=== PATIENT | female | born 1995 | race Caucasian/White ===

== ENCOUNTER 2023-04-16 15:40 | Outpatient (CLI) | payer BC, SELFPAY ==
--- NOTE | ~2023-04-16 | XR_ITS ---
EXAMINATION: XR chest 2V DATE: 04/16/2023 15:55 INDICATION: Nonspecific lymphadenitis TECHNIQUE: PA and lateral views of the chest are obtained. COMPARISON: None available FINDINGS: The lungs are free of acute opacities. No pleural effusion or pneumothorax. The cardiomedia stinal silhouette is normal. The visualized bones and soft tissues are unremarkable. IMPRESSION: 1. No acute cardiopulmonary abnormality. Reviewed, dictated and finalized at location F.
== END 2023-04-16 15:41 | disposition home or self-care (01) ==
PROVIDERS: PCP Family Medicine; Visit Provider Physician Assistant
DX: I88.9 Nonspecific lymphadenitis, unspecified (principal)
CPT/HCPCS: 71046

== ENCOUNTER → 2023-05-25 13:13 | Outpatient (CLI) | payer BC, SELFPAY ==
--- NOTE | ~2023-05-25 | US_ITS ---
US axilla 05/25/2023 13:50 Indication: Enlarged axillary lymph nodes versus lipoma Procedure: High-resolution ultrasound of the axilla bilaterally Comparison: No prior studies for comparison. Findings: There are normal-appearing bilateral axillary lymph nodes which retain their fatty hilum. L argest on the right measures 12 mm and on the left measures 11 mm. No pathologic appearing lymph node s or lipomas are identified. Impression: 1: Bilateral axillary lymph nodes, likely reactive. Reviewed, dictated and finalized at location A. Impression: 1: Bilateral axillary lymph nodes, likely reactive.
--- NOTE | ~2023-05-25 | US_ITS ---
EXAMINATION: US thyroid DATE: 05/25/2023 13:50 INDICATION: Weight gain. Fatigue. TECHNIQUE: Multiple ultrasound images of the thyroid were obtained. COMPARISON: None. FINDINGS: The right thyroid lobe measures 6.1 x 1.1 x 1.1 cm. The left thyroid lobe measures 5.8 x 0.9 x 1.6 c m. In the right thyroid lobe, there is a 2 mm nodule, likely not clinically significant. In the left thyroid lobe, there is a 2.5 cm solid, hypoechoic, wider than tall nodule with lobulated margin and punctate echogenic foci (TI-RADS TR5). IMPRESSION: 1. Thyroid nodules. Ultrasound-guided fine-needle aspiration of the left thyroid nodule is recommende d. Reviewed, dictated and finalized at location A. IMPRESSION: 1. Thyroid nodules. Ultrasound-guided fine-needle aspiration of the left thyroi d nodule is recommended.
== END ==
PROVIDERS: PCP Family Medicine; Visit Provider Physician Assistant
DX: R53.83 Other fatigue (principal); E04.2 Nontoxic multinodular goiter
CPT/HCPCS: 76536; 76882

== ENCOUNTER 2023-06-11 09:01 | Outpatient (CLI) | payer BC, SELFPAY ==
--- NOTE | ~2023-06-11 | US_ITS ---
EXAMINATION: US FNA w image guidance DATE: 06/11/2023 10:02 INDICATION: Nontoxic single thyroid nodule TECHNIQUE: A time-out was performed to verify the patient's name, date of , and procedure to be performed . The procedure and its benefits and risks were discussed with the patient. Risks specifically discus sed included bleeding and infection. The patient understood the risks and agreed to proceed. The neck was prepped and draped in the usual sterile manner. 3 mL 1% lidocaine was used for local anesthesia . 6 passes were made with a 25G needle into the lesion. Appropriate needle location was documented with continuous sonographic guidance. A sterile bandage was applied. There were no immediate compli cations. FINDINGS: Grayscale ultrasound images demonstrate biopsy needles advanced into a 2.5 cm solid very hypoechoic T I RADS 5 nodule with punctate echogenic foci in the left thyroid. IMPRESSION: 1. Successful ultrasound-guided fine needle aspiration of the 2.5 cm TI RADS 5 left thyroid nodule o f concern. Reviewed, dictated and finalized at location A. IMPRESSION: 1. Successful ultrasound-guided fine needle aspiration of the 2.5 cm TI RADS 5 left thyroid nodule of concern.
== END 2023-06-11 09:02 | disposition home or self-care (01) ==
PROVIDERS: PCP Family Medicine; Visit Provider Physician Assistant
DX: E04.1 Nontoxic single thyroid nodule (principal)
CPT/HCPCS: 10005; 88173; 88305

== ENCOUNTER 2024-02-04 11:02 | Outpatient (CLI) | payer BC, SELFPAY ==
--- NOTE | ~2024-02-04 | US_ITS ---
EXAMINATION: US thyroid DATE: 02/04/2024 12:32 INDICATION: Thyroid nodule. TECHNIQUE: Multiple ultrasound images of the thyroid were obtained. COMPARISON: Ultrasound 05/25/2023, 06/11/23 FINDINGS: The right thyroid lobe measures 5.6 x 1.0 x 1.4 cm. The left thyroid lobe measures 5.8 x 1.2 x 1.4 c m. In the left thyroid lobe, there is a 2.9 cm solid, hypoechoic, wider than tall nodule with lobula abby margin and punctate echogenic foci (TI-RADS TR5). IMPRESSION: 1. Left thyroid nodule, stable from 06/11/2023 when biopsy was benign. Reviewed, dictated and finalized at location A.
== END 2024-02-04 11:03 | disposition home or self-care (01) ==
LOC: ANHIMG 11:03
PROVIDERS: PCP Family Medicine; Visit Provider Otolaryngology
DX: E04.1 Nontoxic single thyroid nodule (principal)
CPT/HCPCS: 76536

== ENCOUNTER 2025-03-26 17:26 | Outpatient (CLI) | payer BC, SELFPAY ==
--- NOTE | ~2025-03-26 | XR_ITS ---
EXAM: XR_KNEE1-2VRT_CR, XR_KNEE1-2VLT_CR DATE: 03/26/2025 17:46 HISTORY: M25.561 - Pain in right knee . COMPARISON: None available. FINDINGS: Normal mineralization. No fracture or dislocation. No lytic or blastic lesion. Mild medial joint space narrowing bilaterally, slightly more pronounced in the right knee. Trace bilateral joint effusions. No erosion or periosteal change. Soft tissues within normal limits. IMPRESSION: Mild bilateral interstitial compartment osteoarthritis. Reviewed, dictated and finalized at location K. IMPRESSION: Mild bilateral interstitial compartment osteoarthritis.
--- OUTSIDE RECORDS SUMMARY | 2025-03-26 17:30 | XMS_ITS | Continuity of Care Document ---
Author Organization [facility] Address [address] [place] [address] Phone Care Team Providers Care Pharmacy General Manager Name Role Phone Isai MSN CAR RETARDER OPERATOR-C, Sloane Unavailable Unavai lable Advance Directives Directive Yes / No Effective Date File Name No Information Encounters Encounter Description Practice Location Reason(s) For Visit Diagnoses Date Provider Providers [facility]ied [facility], [address] [place] [address], [id number], [place] tel: [phone] [facility] No Information Isai Anton. [address] [place], [address], [place]. tel: [phone] Family History Family Member Type Diagnosis Age At Onset No Information Payers Payer name Insurance type Covered alliance party ID Authoriza tion(s) No Information Social History Type Description Quantity Date Captured Comments Sex Female Smoking Status No Information Chief Complaint And Reason For Visit No Information Reason For Referral Reason For Referral No Information History Of Present Illness Encounter Date Complaint History Of Prese nt Illness No Information Functional Status Date Functional Assessmen t No Information Instructions Date Instruction Additional Infor mation No Information Assessments Type Assessment Date No Information Patient Care Teams Name Effective Dates (start - stop) Status Members No Information
--- OUTSIDE RECORDS SUMMARY | 2025-03-26 17:30 | XMS_ITS | Continuity of Care Document ---
Author Organization [facility] Address [address] [place] [address] Phone Care Team Providers Care Anodic Treater Name Role Phone Joseluis Kaur MD Unavailable Unavailable Advance Directives Directive Yes / No Effective Date File Name No Information Encounters Encounter Description Practice Location Reason(s) For Visit Diagnoses Date Provider Providers Copied on Encounter [facility], [address], [id number], tel:[phone] [facility] No Information Vincent Huggins. [address] [place], [id number], [place]. tel:[phone] [facility], [address], [id number], [place] tel:[phone] [facility] Encounter for general adult medical examination without abnormal findings Vincent Huggins. [address], [place], [id number], [place]. tel:[phone] Family History Family Member Type Diagnosis Age At Onset No Information Payers Payer name Insurance type Covered alliance party ID Authoriza tion(s) No Information Social History Type Description Quantity Date Captured Comments Sex Female Smoking Status No Information Chief Complaint And Reason For Visit No Information Plan Of Treatment Date Type Action Status No Information History Of Present Illness Encounter Date Complaint History Of Prese nt Illness No Information Instructions Date Instruction Additional Infor mation No Information Assessments Type Assessment Date No Information
--- OUTSIDE RECORDS SUMMARY | 2025-03-26 17:30 | XMS_ITS | Continuity of Care Document ---
Author Organization [facility] Address [address] [facility] [address] [place] [address] Phone Care Team Providers Care Computational Geneticist Name Role Phone Salome DELGADO, Samra Unavailable Unavailable Medications Medication Instructions Dosage Effective Dates (start - stop) Status Comments Aerochamber Plus Flow-Vu use with MDI as instructed - Active albuterol sulfate HFA 90 mcg/actuation aerosol inhaler inhale 2 puff by Inhalation route every 4 - 6 hours as needed for cough, wheeze, shortness of breath 2 puff - Active Flovent HFA 44 mcg/actuation aerosol inhaler inhale 2 puff by inhalation route 2 times every day - Active Flonase Allergy Relief 50 mcg/actuation nasal spray,suspension spray 2 spray by intranasal route every day in each nostril 100-100 MCG - Active Procedures Procedure Date Less Than 24 Hour Notice Of Appointment Cancellation Less Than 24 Hour Notice Of Appointment Cancellation Flow Volume Loop EVALUATE PT USE OF INHALER Mouth piece Perc Test Intradermal Test New (Level 4) OFFICE/OUTPATIENT VISIT SOFTWARE MANAGER Registration Fee Advance Directives Directive Yes / No Effective Date File Name No Information Encounters Encounter Description Practice Location Reason(s) For Visit Diagnoses Date Provider Providers Copied on Encounter [facility], [address] [place] [address], [id number], tel:[phone] [facility] No Information 4 Salome Cheshil. [address], [place], [address], [place]. tel:[phone] [facility], [address] [place] [address], [id number], [place] tel:[phone] [place] Information [facility] . Referring Provider: Samra Mcmahon, [address], [place], [address]. tel:[phone] [facility], [address] [place] [address], [id number], tel:[phone] [facility] Information 3 Salome Cheshil. [address], [place], [address], [place]. tel:[phone] [facility], [address] [place] [address], [id number], tel:[phone] [facility] No Information 3 Meenakshi Kline. [address] [place] [address], [address], [place], [place], [id number], [place]. tel:[phone] New (Level 4) OFFICE/OUTPA TIENT VISIT [facility], [address] [place] [address], [id number], [place] tel:[phone] [facility] symptoms (chief complaint) Other allergic rhinitisWheezing Body mass index (BMI) 28.0-28.9, adult Aug- 3 Salome Cheshil. [address], [place], [address], [place]. tel:[phone] Referring Provider: Cara cole, [address] [place] [address] [address], [place], [address]. tel:[phone] [facility], [address] [address], [place], [place], [id number], [place] tel:[phone] [facility] [place] Information 3 Salomeroge Suil. [address] [facility], [place], [address], [place]. tel:[phone] Family History Family Member Type Diagnosis Age At Onset Father Problem Thyroid disorder Problem No family histor y of Family history of rheumatoid arthritis Problem No family history of Asthma Father Problem Allergic rhinitis Problem No family history of Immunod eficiency disorder Payers Payer name Insurance type Covered democrat ID Authordiannakelsey hayleymelba(s) [facility] [id number] Social History Type Description Quantity Date Captured Comments Alcohol Use Details Unknown Caffeine Use Details Unknown Tobacco Use Status No Information Smoking Status No Information Sex Female Chief Complaint And Reason For Visit No Information Reason For Referral Reason For Referral No Information History Of Present Illness Encounter Date Complaint History Of Prese nt Illness allergy symptoms WheezingShe rep orts wheezing and shortness of breath over the last 7 months. This occurs at rest and with activity. She does awaken with coughing in the middle of the night. She does not carry any inhalers. RhinitisThe patient has a history of perennial rhinitis with seasonal worsening in spring/summer. Her symptoms have worsened over the last 6-8 months. The symptoms include nasal pruritus, congestion, rhinorrhea (ant), sneezing, and cough w/ ocular pruritus and tearing. Currently, the patient is on Flonase 2 SEN daily x 3 months + allergy eye drops, which did not provide adequate relief. The patient does not have a history of frequent sinus infections.She reports loss of sense of smell and taste over the last 6-8 months.She notes that her symptoms of wheezing and rhinitis seem to be worse in areas where there is mold in her apartment (see below).She did cut gluten, dairy, and soy at a recommendation from her It Trainer. The patient feels better doing this. 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 Also, take 2 puffs 15-20 minutes prior to exertion Related to Wheezing - use afrin 2 sprays each nostril twice daily prior to other treatments - do NOT use more than 3 days in a row- use nasal saline rinses twice daily- use Flonase 2 sprays each nostril daily- Please remember to point the nasal spray away from the nasal septum, up and outwards towards the top of the ears on both sides- if nose bleeding occurs, please hold the nasal spray for 2-3 days to allow for healing of the nasal tissue (you may use nasal saline gel or vaseline on a q-tip to help heal the tissue), then restart the nasal spray.- If nose bleeding recurs, please stop the nasal spray and contact our office to set up an appointment for further guidance Related to Other allergic rhinitis Giving encouragement to exercise Related to Body mass index [BMI] 28.0-28.9, adult Assessments Type Assessment Date No Information Patient Care Teams Name Effective Dates (start - stop) Status Members No Information
--- OUTSIDE RECORDS SUMMARY | 2025-03-26 17:31 | XMS_ITS | Encounter Summary ---
Author Organization [facility] Address [address] [place] [address] Care Team Providers Care Cvt Rn Name Role Phone Cara Pratt MD Primary Care Provider [phone] Encounter Details Date Type Department Care Team (Late st Contact Info) Description 02/22/2025 Results Follow-Up [facility] [facility] - 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
--- OUTSIDE RECORDS SUMMARY | 2025-03-26 17:31 | XMS_ITS | Clinical Summary ---
Author Organization [facility] Address [address] [place] [phone] Phone Care Team Providers Care Manager Clinical Services Name Role Phone Cara Pratt MD Primary Care Provider [phone]- [phone] Allergies No known active allergies Medications Tri-Sprintec, 28, 0.18/0.215/0.25 mg-35 mcg (28) tablet Take 1 Tablet by mouth daily. 10/10/2024 Active dextroamphetamin e-amphetamine (ADDERALL) 15 mg tablet Take 15 mg by mouth daily. Active Active Problems Problem Noted Date Diagnosed Date Gastroesophageal reflux disease without esophagi tis 08/14/2021 Depression affecting pregnan cy in third trimester, antepartum 08/14/2021 PLTCS; PPH (2460); anemia; girl 07/01/2021 Amniotic fluid leaking 06/29/2021 Clear vaginal discharge 05/20/2021 Tenderness of right calf 05/13/2021 Rubella non-immune status, antepartum 12/16/2020 Change in bowel habit 10/14/2020 Bloating 10/14/2020 Hematochezia 10/14/2020 Constipation 10/14/2020 Cramping affecting , antepartum Decreased movements in second trimester Encounters Date Type Department Care Team Description 02/22/2025 Results Follow-Up [facility] - [address] [place] [phone] Antonia Samuel NP ESTRADIOL 02/13/2025 External Device Data STL ABSTRACTION Provider, Abstract 01/13/2025 External Device Data STL ABSTRACTION Provider, Abstract 01/12/2025 External Device Data STL ABSTRACTION Provider, Abstract 01/10/2025 External Device Data STL ABSTRACTION Provider, Abstract 12/27/2024 External Device Data STL ABSTRACTION Provider, Abstract from Last 3 Months Immunizations Immunization Administration Dates Next Due (ADACEL/BOOSTRIX)(10 YR UP) TDAP VACCINE, 0.5ML, IM 04/18/2021 (M-M-R II/PRIORIX)(12 MO UP) MEASLES, MUMPS AND RUBELLA VIRUS VACCINE, 0.5 ML IM/SUBCUT 07/04/2021 (PFIZER)(12 YR UP) COVID-19 VACCINE - EMERGENCY USE AUTHORIZATION, MRNA, [id number](PF) 30 MCG/0.3 ML IM SUSP 04/12/2021,04/01/2021 Influenza Seasonal Unspecifi ed Formulation IM 09/07/2021,09/25/2020,08/05/2020,2019 Family History Medical History Relation Name Comments Depression Father James Gaines Diabetes Father James Gaines Other Father James Gaines Hosimotos Thyroid Disease Father James Gaines Preeclampsia Mother Bethany Gaines Colon Cancer Paternal Grandmother Dada Gaines Relation Name Status Comments Father James Gaines Alive Mother Bethany Gaines Alive Paternal Grandmother Dada Gaines Social History Tobacco Use Types Packs/Day Years Used Date Smoking Tobacco: Never Smokeless Tobacco: Never Alcohol Use Standard Drinks/Week Comments Not Currently 0 (1 standard drink = 0.6 oz pur e alcohol) Comments No Sex and Gender Information Value Date Recorded Sex Assigned at Not on file Legal Sex Female 9:19 PM GLASS BENDER Gender Identity Not on file Sexual Orientation Not on file Last Filed Vital Signs Vital Sign Reading Time Taken Comments Blood Pressure 123/74 12/18/2024 9:32 AM GLASS BENDER Pulse 81 12/18/2024 9:32 AM GLASS BENDER Temperature 36.5 C (97.7 F) 12/18/2024 9:32 AM GLASS BENDER Respiratory Rate 14 06/03/2022 10:17 AM CDT Oxygen Saturation 100% 06/03/2022 10:17 AM CDT Inhaled Oxygen Concentration - - Weight 82.1 kg (181 lb) 04/17/2024 9:21 AM CDT Height 172.7 cm (5' 8 ) 04/17/2024 9:21 AM CDT Body Mass Index 27.52 04/17/2024 9:21 AM CDT Plan of Treatment Health Maintenance Due Date Last Done Comments HEPATITIS B VACCINES (1 of 3 - 19+ 3-dose series) 2014 HPV/Cotest (21-29) 01/10/2016 COVID-19 Vaccine ( - 2023- season) 2024 09/18/2021, 04/12/2021, 04/01/2021 CERVICAL CANCER SCREENING 2025 HPV/Cotest (30-65) 2025 PAP SMEAR 2025 12/03/2021 DTAP/TDAP/TD VACCINES (2 - Td or Tdap) 04/18/2031 04/18/2021 INFLUENZA VACCINE Completed 09/07/2024, , 09/07/2021, Additional history exists HPV VACCINES Aged Out No longer eligi ble based on patient's age to complete this topic Medical Devices Implanted Type Area Circus Performer Device Identifier Shelf Expiration Date Model / Serial / Lot Hemostatic Surg Powder [id number] - [id number] Implanted:Qty : 1 on 06/30/2021 by Michelle Awan MD at [facility] Hemostatic N/A: Abdomen [employer] [id number] / / Procedures Procedure Name Priority Date/Time Associated Diagnosis Comments LUTEINIZING HORMONE Routine 02/21/2025 1 :14 PM CDT Irregular bleeding FSH Routine 02/21/2025 1:14 PM CDT Irregular bleeding ESTRADIOL Routine 02/21/2025 1:14 PM CDT Irregular bleeding CERV/VAG CYTO AGE BASED SCREEN PAP Routine 12/03/2021 2:29 PM GLASS BENDER Well woman exam with routine gynecological exam from Last 3 Months or Most Recently Relevant to Health Maintenance Results * ESTRADIOL (02/21/2025 1:14 PM CDT) [facility]OL 46 pg/[facility] Comment: Reference Range Follicular Phase: 19-144 Mid-Cycle: 64-357 Luteal Phase: 56-214 Postmenopausal: < or = 31 Reference range established on post-pubertal patient population. No pre-pubertal reference range established using this assay. For any patients for whom low Estradiol levels are anticipated (e.g. males, pre-pubertal children and hypogonadal/post-menopausal females), the [facility] Estradiol, Ultrasensitive, LCMSMS assay is recommended (order code 58729). Please note: patients being treated with the drug fulvestrant (Faslodex(R)) have demonstrated significant interference in immunoassay methods for estradiol measurement. The cross reactivity could lead to falsely elevated estradiol test results leading to an inappropriate clinical assessment of estrogen status. AYLIEN order code [id number], Ultrasensitive LC/MS/MS demonstrates negligible cross reactivity with fulvestrant. INSURANCE ON PHONE FASTING:NO FASTING: NO Test Performed at: [facility] [place] [address] [place] [address] Zenia Nazario Blood 02/21/2025 1:14 PM CDT 02/21/2025 1:15 PM CDT Antonia Samuel BOTTLE PACKING MACHINE CLEANER CHEMISTRY ORDERABLES Final Resu lt [facility] [phone] [place] [address] [place] [address] * LUTEINIZING HORMONE (02/21/2025 1:14 PM CDT) LUTEINIZING HORMONE 5.0 mIU/mL [facility] Comment: Reference Range Follicular Phase 1.9-12.5 Mid-Cycle Peak 8.7-76.3 Luteal Phase 0.5-16.9 Postmenopausal 10.0-54.7 INSURANCE ON PHONE FASTING:NO FASTING: NO Test Performed at: [facility] [address] [address] Zenia Nazario MD Blood 02/21/2025 1:14 PM CDT 02/21/2025 1:15 PM CDT us Antonia Samuel BOTTLE PACKING MACHINE CLEANER CHEMISTRY ORDERABLES Final Resu lt Performing Organization Address [facility]/ZIP Co de Phone Number [facility] [phone] [facility] [address] [place] [address] * FSH (02/21/2025 1:14 PM CDT) FSH 7.5 mIU/mL [facility] Comment: Reference Range Follicular Phase 2.5-10.2 Mid-cycle Peak 3.1-17.7 Luteal Phase 1.5- 9.1 Postmenopausal 23.0-116.3 Test Performed at: [facility] [address] [place] [address] Zenia Nazario MD Blood 02/21/2025 1:14 PM CDT 02/21/2025 1:15 PM CDT Antonia Samuel NP CHEMISTRY ORDERABLES Final Resu Performing Organization Address [facility] Co de Phone Number [facility] [phone] [facility] [address] [place] [address] * CERV/VAG CYTO AGE BASED SCREEN PAP (12/03/2021 2:29 PM GLASS BENDER) COMMENT (PAP): [facility] Comment: This order for age-based cervical cancer and STI screening follows ACOG guidelines(PB 168, 140, HBY080). See individual assays for performing site location. CLINICAL INFORMATION [facility] Comment:Information not prov ided LAST MENSTRUAL PERIOD [facility] Comment:INFORMATION NOT PROV IDED PREV PAP: [facility] Comment:INFORMATION NOT PROV IDED PREV BX: [facility] Comment:INFORMATION NOT PROV IDED SOURCE [facility] Comment:Endocervix ADEQUACY: [facility] Comment: Satisfactory for evaluation. Endocervical/transformation zone component absent. Age and/or menstrual status not provided PAP INTERP [facility] Comment:Negative for intraep ithelial lesion or malignancy. COMMENT (PAP TEST) [facility] Comment: This Pap test has been evaluated with computer assisted technology. KELLY MACHINE OPERATOR: [facility] Comment: BES, CT(ASCP) CT screening location: [place] [address] [address] [place] [address] EXPLANATORY NOTE [facility] Comment: EXPLANATORY NOTE: The Pap is a screening test for cervical cancer. It is not a diagnostic test and is subject to false negative and false positive results. It is most reliable when a satisfactory sample, regularly obtained, is submitted with relevant clinical findings and history, and when the Pap result is evaluated along with historic and current clinical information. Test Performed at: [place] [address] [place] [address] Antoinette-Dirku Thi Vo Genital SWAB OF ENDOCERVIX / Unknown 12/03/2021 2:29 PM GLASS BENDER 12/03/2021 7:51 PM GLASS BENDER Michelle Awan MD PATHOLOGY/CYTOLOGY EULALIO GIFFORD Final Result [facility] [address] [place] [address] from Last 3 Months or Most Recently Relevant to Health Maintenance Insurance [facility] BLUE ACCESS CHOICE RX [employer] RX Member Subscriber Plan / Payer (Ef fective 2021-Present) Name:Gina Gonzalez Relation to Subscriber:Self Name:Gina Gonzalez Subscriber ID:Not on file Payer ID:Not on file Group ID:[id number] Type:RX Commercial Address: [place] RX BLANK PLANS (INTERNAL) [facility] Internal Plans Advance Directives For more information, please contact: [phone] * Full Code (Latest Code Status on File) Date Activated Date Inactivated Comments 06/03/2022 8:57 AM 06/03/2022 12:52 PM * Full Code Date Activated Date Inactivated Comments 06/18/2021 9:39 AM 06/18/2021 3:36 PM * Full Code Date Activated Date Inactivated Comments 05/20/2021 9:36 PM 05/21/2021 1:57 AM * Full Code Date Activated Date Inactivated Comments 05/13/2021 12:33 PM 05/13/2021 4:16 PM * Full Code Date Activated Date Inactivated Comments 02/11/2021 2:58 PM 02/11/2021 6:35 PM Care Teams Manager Clinical Services Relationship Specialty Start Date End Date Cara Pratt MD PCP - General Family Practice 04/20/22
== END 2025-03-26 17:27 | disposition home or self-care (01) ==
PROVIDERS: PCP Family Medicine; Visit Provider Student in an Organized Health Care Education/Training Program
DX: M17.0 Bilateral primary osteoarthritis of knee (principal)
CPT/HCPCS: 73560

== ENCOUNTER 2025-06-27 15:32 | Outpatient (CLI) | payer BC, SELFPAY ==
--- NOTE | ~2025-06-27 | US_ITS ---
US thyroid INDICATION: Nontoxic thyroid nodule TECHNIQUE: Real-time sonographic images of the thyroid gland were obtained. COMPARISON: Comparison to multiple prior studies sequentially, with oldest reviewed study dated 05/25/2023. FINDINGS: The right thyroid lobe measures 5.6 x 1.2 x 1.5 cm. The left thyroid lobe measures 5.8 x 1.5 x 1.8 cm. There is normal echotexture and echogenicity throughout the thyroid gland. There is an oval solid hypoechoic mass which is wider than tall, circumscribed margins and internal punctate echogenic foci, TR 5, measuring 2.6 x 1.5 x 1.2 cm, unchanged from prior study. Normal vascular flow is present. IMPRESSION: 1. Stable left thyroid mass since 06/11/2023 when it was previously biopsy-proven benign. Reviewed, dictated and finalized at location A. IMPRESSION: 1. Stable left thyroid mass since 06/11/2023 when it was previously biopsy-prove n benign.
--- OUTSIDE RECORDS SUMMARY | 2025-06-27 15:57 | XMS_ITS | Clinical Summary ---
Author Organization [facility] Address [address] [place] [phone] Phone Care Team Providers Care Development Representative Name Role Phone Cara Pratt MD Primary Care Provider [phone]- [phone] Allergies No known active allergies Medications Tri-Sprintec, [...] Encounters Date Type Department Care Team Description 06/13/2025 External Device Data STL ABSTRACTION Provider, Abstract 05/08/2025 External Device Data STL ABSTRACTION Provider, Abstract 03/29/2025 External Device Data STL ABSTRACTION Provider, Abstract from Last 3 Months Immunizations Immunization Administration Dates Next Due (ADACEL/BOOSTRIX)(10 YR UP) TDAP VACCINE, 0.5ML, IM 04/18/2021 (M-M-R II/PRIORIX)(12 MO UP) MEASLES, MUMPS AND RUBELLA VIRUS VACCINE, 0.5 ML IM/SUBCUT 07/04/2021 (PFIZER)(12 YR UP) COVID-19 VACCINE - EMERGENCY USE AUTHORIZATION, MRNA, [id number](PF) 30 MCG/0.3 ML IM SUSP 04/12/2021,04/01/2021 Influenza [...] on file Legal Sex Female 9:19 PM OUTBOARD MOTOR MECHANIC Gender Identity Not on file Sexual Orientation Not on file Last Filed Vital Signs Vital Sign Reading Time Taken Comments Blood Pressure 123/74 12/18/2024 9:32 AM OUTBOARD MOTOR MECHANIC Pulse 81 12/18/2024 9:32 AM OUTBOARD MOTOR MECHANIC Temperature 36.5 C (97.7 F) 12/18/2024 9:32 AM OUTBOARD MOTOR MECHANIC Respiratory Rate 14 06/03/2022 10:17 AM CDT Oxygen Saturation 100% 06/03/2022 10:17 AM CDT Inhaled Oxygen Concentration - - Weight 82.1 kg (181 lb) 04/17/2024 9:21 AM CDT Height 172.7 cm (5' 8) 04/17/2024 9:21 AM CDT Body Mass Index 27.52 04/17/2024 9:21 AM CDT Plan of Treatment Health Maintenance Due Date Last Done Comments HPV VACCINES (1 - 3-dose series) 2010 HEPATITIS B VACCINES (1 of 3 - 19+ 3-dose series) 2014 HPV/Cotest (21-29) 01/10/2016 COVID-19 Vaccine (2023-2 5 season) 2024 09/18/2021, 04/12/2021, 04/01/2021 CERVICAL CANCER SCREENING 2025 HPV/Cotest (30-65) 2025 PAP SMEAR 2025 12/03/2021 INFLUENZA VACCINE (#1) 2025 , 09/17/2022, 09/07/2021, Additional history exists DTAP/TDAP/TD VACCINES (2 - T d or Tdap) 04/18/2031 04/18/2021 Medical Devices Implanted Type Area Featheredge Machine Operator Device Identifier Shelf Expiration Date Model / Serial / Lot Hemostatic Surg Powder [id number] - [id number] Implanted:Qty : 1 on 06/30/2021 by Michelle Awan MD at [facility] Hemostatic N/A: Abdomen J[employer]- [employer] [id number] / / Procedures Procedure Name Priority Date/Time Associated Diagnosis Comments CERV/VAG CYTO AGE BASED SCREEN PAP Routine 12/03/2021 2:29 PM OUTBOARD MOTOR MECHANIC Well woman exam with routine gynecological exam from Last 3 Months or Most Recently Relevant to Health Maintenance Results * CERV/VAG CYTO AGE BASED SCREEN PAP (12/03/2021 2:29 PM OUTBOARD MOTOR MECHANIC) COMMENT (PAP): [facility] Comment: This order for age-based cervical cancer and STI screening follows ACOG guidelines(PB 168, 140, SJG712). See individual assays for performing site location. [...] has been evaluated with computer assisted technology. PLATING AND POINT ASSEMBLY SUPERVISOR: [facility] Comment: BES, CT(ASCP) CT screening location: [place] [address] [place] [address] EXPLANATORY NOTE [facility] Comment: EXPLANATORY NOTE: The Pap is a screening test for cervical cancer. It is not a diagnostic test and is subject to false negative and false positive results. It is most reliable when a satisfactory sample, regularly obtained, is submitted with relevant clinical findings and history, and when the Pap result is evaluated along with historic and current clinical information. Test Performed at: [place] [address] [place] [address] Antoinette-Dirku Thi Vo Genital SWAB OF ENDOCERVIX / Unknown 12/03/2021 2:29 PM OUTBOARD MOTOR MECHANIC 12/03/2021 7:51 PM OUTBOARD MOTOR MECHANIC Michelle Awan MD PATHOLOGY/CYTOLOGY EULALIO GIFFORD Final Result [facility] [address] [place] [address] from Last 3 Months or Most Recently Relevant to Health Maintenance Insurance [facility] BLUE ACCESS CHOICE RX [employer] RX Member Subscriber Plan / Payer (Ef fective 2021-Present) Name:Gina Gonzalez Relation to Subscriber:Self Name:Gina Gonzalez Subscriber ID:Not on file Payer ID:Not on file Group ID:[id number] Type:RX Commercial [facility] [place] [facility] BLANK PL[facility] (INTERNAL) [facility] Internal Plans Advance Directives For more information, please contact: [phone] * Full Code (Latest Code Status on [...] 2:58 PM 02/11/2021 6:35 PM Care Teams Development Representative Relationship Specialty Start Date End Date Cara Pratt MD PCP - General Family Practice 04/20/22
--- OUTSIDE RECORDS SUMMARY | 2025-06-27 15:57 | XMS_ITS | Patient Health Record ---
Author Organization [facility] Address [address] [facility] [address] [place] [address] Care Team Providers Care Core Maker Name Role Phone Kamaljit Batista Unavailable [phone] Reason For Referral No Information Medications Medication SIG (Take, Route, Frequency, Duration) Notes Start Date End Date Status Retin-A Micro Pump 0.08 % Gel External Active Plan Of Treatment No Information Insurance Providers Payer Name Payer Address Payer Phone Subscriber Number Group Number Insured Name Patient Relationship to Insured Coverage Start Date Coverage End Date [facility] [address] [place] [address] [id number] RENEE GONZALEZ Self - patient is the insured
== END 2025-06-27 15:33 | disposition home or self-care (01) ==
PROVIDERS: PCP Family Medicine; Visit Provider Student in an Organized Health Care Education/Training Program
DX: E04.1 Nontoxic single thyroid nodule (principal)
CPT/HCPCS: 76536

== ENCOUNTER 2025-10-05 23:54 | Emergency (ER) | payer BC, SELFPAY ==
--- NOTE | ~2025-10-05 | XR_ITS ---
Examination: XR chest 2V Clinical History: sob Comparison: None Technique: PA and Lateral Findings: Cardiomediastinal silhouette normal size and configuration. Lungs clear. No acute bony abnormality. IMPRESSION: 1. No acute cardiopulmonary findings. Reviewed, dictated and finalized at location R. NATOR ASSEMBLER
--- NOTE | ~2025-10-05 | CT_ITS ---
CTA CHEST CLINICAL HISTORY: cp, sob, elevated dimer, covid + . COMPARISON: Chest x-ray today TECHNIQUE: Helical CTA performed from thoracic inlet to upper abdomen 100 mL Omnipaque 350 Coronal, sagittal reformats. Multiplanar MIPS CT images acquired with automatic exposure control for dose reduction DLP: 215 mGy-cm FINDINGS: Pulmonary arteries: No PE. Thoracic Aorta: No dissection or aneurysm. Heart/pericardium: Unremarkable. RV/LV ratio: Normal. Lungs/Pleura: Clear. Tracheobronchial tree: Patent. Nodes: No enlarged nodes. Bones: No acute bony abnormality. Soft tissues: Unremarkable. Visualized upper abdomen: Hepatomegaly, with steatosis. IMPRESSION: 1. No PE or other acute cardiopulmonary findings. Reviewed, dictated and finalized at location R. GER STATISTICAL
--- NOTE | 2025-10-06 00:28 | ECG_ITS ---
Test Date: 2025-10-06 00:33:51 Measurements Intervals [place] Rate: 78 P: 50 CO: 166 QRS: 97 QRSD: 85 T: 56 QT: 354 QTc: 405 Interpretive Statements SINUS RHYTHM BORDERLINE RIGHT AXIS DEVIATION [QRS AXIS > 90] WITHIN NORMAL LIMITS No previous ECG available for comparison Electronically Signed On 10-06-2025 08:11:52 BOAT CLEANING SUPERVISOR by Ciro Smalls M.D.
--- NOTE | 2025-10-06 00:28 | ED_ITS ---
HPI - SOB/Dyspnea General Chief Complaint: Shortness of Breath/Dyspnea <Erica Cano PA-C - Last Filed: 10/07/25 20:57> Stated Complaint: sob <AYDEN England Last Filed: 10/07/25 20:57> Time Seen by Provider: 10/05/25 23:58 <AYDEN England Last Filed: 10/07/25 20:57> Source: patient <AYDEN England Last Filed: 10/07/25 20:57> Mode of arrival: ambulatory <AYDEN England Last Filed: 10/07/25 20:57> Limitations: no limitations <AYDEN England Last Filed: 10/07/25 20:57> History of Present Illness HPI Narrative: This is a 30 year old female that presents to the ER for shortness of breath. Reports she has had a cold this week. Reports fever, cough, congestion. Reports similar illness in her child. Reports she has had worsening shortness of breath while lying down which concerned her and prompted her to be seen. <Erica Cano PA-C - Last Filed: 10/07/25 20:57> Related Data Allergies/Adverse Reactions: Allergies Allergy/AdvReac Type Severity Reaction Status Date / Time dexamethasone AdvReac Intermediate hot flashes Verified 06/20/25 15:34 <Erica Cano PA-C - Last Filed: 10/07/25 20:57> Review of Systems 2 Review of Systems: All systems reviewed & are unremarkable except as noted in HPI and below <Erica Cano PA-C - Last Filed: 10/07/25 20:57> [facility] Past Medical History Medical History: Medical History Cough Mass of both axillae Nipple discharge Breast pain Lymphadenitis anemia Establishing care with new doctor, encounter for HIEU (generalized anxiety disorder) hemorrhage Transfusion history Anemia Migraine Anxiety <AYDEN England Last Filed: 10/07/25 20:57> Surgical History Surgical History: Surgical History Hx of section <Erica Cano PA-C - Last Filed: 10/07/25 20:57> Family History Family History: Family History Grandparent Carcinoma of colon <Erica Cano PA-C - Last Filed: 10/07/25 20:57> Social History Social History: Social History Social History: Smoking status: Never smoker Second hand tobacco smoke exposure: No Alcohol intake: never Substance use: never Substance use type: does not use Lack of Transportation: No Lack of Food: Never True Current Housing: I Have Housing Concerned About Future Housing: No Difficulty Paying Gas/Electric Bills: No Difficulty Paying for Meds: No Currently Unemployed: No Education: Master's Degree or Higher Difficulty w/ Childcare or Family Care: No Living arrangements: with family Occupation/Education: occupation 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 HEAD: Normocephalic, atraumatic. EYES: EOMI. ENT: Nares clear, no rhinorrhea or epistaxis. Mucous membranes moist. Oropharynx without tonsillar hypertrophy exudate or other lesions. Bilateral TMs pearly rowell non-bulging NECK: Supple. No adenopathy or masses. CHEST: Clear to auscultation. No respiratory distress. No wheezes rales or rhonchi HEART: Regular rate and rhythm. No murmur heard. Normal peripheral pulses. EXTREMITIES: Normal range of motion. No edema. SKIN: Warm, dry, no rash. NEURO: No focal deficits. Alert and oriented x3. PSYCH: Normal mood and affect <AYDEN England Last Filed: 10/07/25 20:57> Course Course Emergency Course: Patient care signed over pending CT angiography. CT angiography reviewed and interpreted without any acute findings or any evidence of PE. Patient is saturating well on room air. Diagnosed with COVID. Safe for discharge. < Andre Sun MD - Last Filed: 10/06/25 06:01> Vital Signs Vital signs: Vital Signs Temperature 98.0 F 10/06/25 00:34 Pulse Rate 91 10/06/25 00:34 Respiratory Rate 20 10/06/25 00:34 Blood Pressure 112/81 10/06/25 00:34 Pulse Oximetry 100 10/06/25 00:34 Temperature 98.0 F 10/06/25 00:34 Pulse Rate 88 10/06/25 02:18 Respiratory Rate 23 H 10/06/25 02:18 Blood Pressure 117/73 10/06/25 02:18 Pulse Oximetry 97 10/06/25 02:18 Oxygen Delivery Room Air 10/06/25 00:56 Fraction of Inspired Oxygen 21 10/06/25 00:56 <Erica Cano PA-C - Last Filed: 10/07/25 20:57> Vital Signs Temperature 98.0 F 10/06/25 00:34 Pulse Rate 91 10/06/25 00:34 Respiratory Rate 20 10/06/25 00:34 Blood Pressure 112/81 10/06/25 00:34 Pulse Oximetry 100 10/06/25 00:34 Temperature 98.0 F 10/06/25 00:34 Pulse Rate 88 10/06/25 02:18 Respiratory Rate 23 H 10/06/25 02:18 Blood Pressure 117/73 10/06/25 02:18 Pulse Oximetry 97 10/06/25 02:18 Oxygen Delivery Room Air 10/06/25 00:56 Fraction of Inspired Oxygen 21 10/06/25 00:56 <Andre Sun MD - Last Filed: 10/06/25 06:01> MDM - SOB/Dyspnea MDM Narrative Medical decision making narrative: Patient presents the emergency department for cough, shortness of breath. She is afebrile and nontoxic appearing. Her vitals are stable. Reports improvement after nebulizer treatment. Cbc and metabolic panel without concerning findings. Chest x-ray without acute cardiopulmonary abnormality. COVID test is positive. Dimer elevated, will obtain CTA for further evaluation. Care taken over by Dr. Torossian at shift change <Erica Cano PA-C - Last Filed: 10/07/25 20:57> Differential Diagnosis Differential diagnosis: Likely congestive heart failure, community acquired pneumonia, asthma with exacerbation, pulmonary embolism and other (COVID) <Erica Cano PA-C - Last Filed: 10/07/25 20:57> Lab Data Attestation: I reviewed the patient's lab results. <Erica Cano PA-C - Last Filed: 10/07/25 20:57> Result diagrams: 10/06/25 00:39 10/06/25 00:39 <Erica Cano PA-C - Last Filed: 10/07/25 20:57> Labs: Lab Results 10/06/25 10/06/25 10/06/25 Range/Units 00:39 00:39 01:56 WBC 8.8 (4.5-10.0) K/mm3 RBC 3.95 L (4.2-5.4) M/mm3 Hgb 12.7 (12.0-15.0) g/dL Hct 36.1 L (37.0-47.0) % MCV 91.4 (80-100) fl MCH 32.2 (26-34) pg MCHC 35.2 (32-36) g/dl RDW 12.0 (11.5-14.5) % Plt Count 181 (150-375) k/mm3 MPV 10.9 H (7.4-10.4) fl Immature Gran % (Auto) 0.1 (0-0.5) % Neut % (Auto) 54.6 (45.5-73.1) % Lymph % (Auto) 32.7 (18.3-44.2) % [place] % (Auto) 6.7 (2.6-8.5) % Eos % (Auto) 5.6 H (0-4.4) % Baso % (Auto) 0.3 (0.2-1.2) % Lymph # (Auto) 2.87 (0.9-3.2) K/mm3 [place] # (Auto) 0.6 (0.1-0.6) K/mm3 Eos # (Auto) 0.5 H (0-0.3) K/mm3 Baso # (Auto) 0.0 (0.0-0.1) K/mm3 Abs Immat Gran (auto) 0.01 (0.00-0.031) K/mm3 Absolute Neuts (auto) 4.8 (1.3-6.7) K/mm3 Absolute Nucleated RBC 0.000 (0.0-0.012) K/mm3 Nucleated RBC % 0.0 (0.0-0.2) % PT 12.5 (11.1-14.7) Seconds INR 0.9 APTT 29.2 (22.3-36.8) Seconds D-Dimer 0.51 H Cancelled (<0.48) ug/mL Sodium 137 (137-145) mmol/L Potassium 3.9 (3.4-5.0) mmol/L Chloride 106 (98-107) mmol/L Carbon Dioxide 26 (22-30) mmol/L Anion Gap 5 (4-12) mmol/L BUN 14 (7-17) mg/dL Creatinine 0.91 (0.7-1.0) mg/dL Estim Creat Clear Calc Not Reportable Estimated GFR > 60 (59 - ) Glucose 107 (65-110) mg/dL Calcium 8.8 (8.4-10.2) mg/dL Total Bilirubin 0.5 (0.2-1.3) mg/dL AST 30 (14-36) U/L ALT 33 (6-35) U/L Alkaline Phosphatase 42 (38-126) U/L Troponin I < 0.012 (0.000-0.034) ng/mL NT-Pro-B Natriuret Pep 63 (19.9-100) pg/mL Total Protein 7.3 (6.3-8.2) g/dL Albumin 4.0 (3.5-5.1) g/dL POC Urine HCG, Qual Negative (Negative) Influenza A (RT-PCR) Negative (Negative) Influenza B (RT-PCR) Negative (Negative) RSV (RT-PCR) Negative (Negative) SARS-CoV-2 RNA (RT-PCR) Positive A (Negative) <Erica Cano PA-C - Last Filed: 10/07/25 20:57> Lab Results 10/06/25 10/06/25 10/06/25 Range/Units 00:39 00:39 01:56 WBC 8.8 (4.5-10.0) K/mm3 RBC 3.95 L (4.2-5.4) M/mm3 Hgb 12.7 (12.0-15.0) g/dL Hct 36.1 L (37.0-47.0) % MCV 91.4 (80-100) fl MCH 32.2 (26-34) pg MCHC 35.2 (32-36) g/dl RDW 12.0 (11.5-14.5) % Plt Count 181 (150-375) k/mm3 MPV 10.9 H (7.4-10.4) fl Immature Gran % (Auto) 0.1 (0-0.5) % Neut % (Auto) 54.6 (45.5-73.1) % Lymph % (Auto) 32.7 (18.3-44.2) % [place] % (Auto) 6.7 (2.6-8.5) % Eos % (Auto) 5.6 H (0-4.4) % Baso % (Auto) 0.3 (0.2-1.2) % Lymph # (Auto) 2.87 (0.9-3.2) K/mm3 [place] # (Auto) 0.6 (0.1-0.6) K/mm3 Eos # (Auto) 0.5 H (0-0.3) K/mm3 Baso # (Auto) 0.0 (0.0-0.1) K/mm3 Abs Immat Gran (auto) 0.01 (0.00-0.031) K/mm3 Absolute Neuts (auto) 4.8 (1.3-6.7) K/mm3 Absolute Nucleated RBC 0.000 (0.0-0.012) K/mm3 Nucleated RBC % 0.0 (0.0-0.2) % PT 12.5 (11.1-14.7) Seconds INR 0.9 APTT 29.2 (22.3-36.8) Seconds D-Dimer 0.51 H Cancelled (<0.48) ug/mL Sodium 137 (137-145) mmol/L Potassium 3.9 (3.4-5.0) mmol/L Chloride 106 (98-107) mmol/L Carbon Dioxide 26 (22-30) mmol/L Anion Gap 5 (4-12) mmol/L BUN 14 (7-17) mg/dL Creatinine 0.91 (0.7-1.0) mg/dL Estim Creat Clear Calc Not Reportable Estimated GFR > 60 (59 - ) Glucose 107 (65-110) mg/dL Calcium 8.8 (8.4-10.2) mg/dL Total Bilirubin 0.5 (0.2-1.3) mg/dL AST 30 (14-36) U/L ALT 33 (6-35) U/L Alkaline Phosphatase 42 (38-126) U/L Troponin I < 0.012 (0.000-0.034) ng/mL NT-Pro-B Natriuret Pep 63 (19.9-100) pg/mL Total Protein 7.3 (6.3-8.2) g/dL Albumin 4.0 (3.5-5.1) g/dL POC Urine HCG, Qual Negative (Negative) Influenza A (RT-PCR) Negative (Negative) Influenza B (RT-PCR) Negative (Negative) RSV (RT-PCR) Negative (Negative) SARS-CoV-2 RNA (RT-PCR) Positive A (Negative) <Andre Sun MD - Last Filed: 10/06/25 06:01> Imaging Data Radiologist's impression: ITS Impressions Chest X-Ray 10/06/25 06:12 IMPRESSION: 1. No acute cardiopulmonary findings. Chest CTA 10/06/25 06:13 IMPRESSION: 1. No PE or other acute cardiopulmonary findings. <Erica Cano PA-C - Last Filed: 10/07/25 20:57> ECG Data EKG #1: ECG completion date: 10/06/25 <AYDEN England Last Filed: 10/07/25 20:57> EKG Interpretation: normal rate, sinus rhythm, no ST changes and normal QT <AYDEN England Last Filed: 10/07/25 20:57> Critical Care Time Critical Care Time Critical Care Time: No <AYDEN England Last Filed: 10/07/25 20:57> Discharge Plan Discharge Clinical Impression: COVID <Erica Cano PA-C - Last Filed: 10/07/25 20:57> Patient Disposition: Home <AYDEN England Last Filed: 10/07/25 20:57> Condition: Stable <AYDEN England Last Filed: 10/07/25 20:57> Instructions: COVID-19 (Coronavirus Disease 2019) (ED), How to Recover from COVID-19 at Home (ED) <AYDEN England Last Filed: 10/07/25 20:57> Additional Instructions: CT scan shows no pneumonia, consolidations, or blood clot. Return to the emergency department for worsening symptoms, or any other concerns Remain well-hydrated, get plenty of rest. Take Tylenol or Motrin [id number] for pain as needed. Flonase for nasal congestion. Zyrtec for runny nose. Albuterol 2 puffs every 4-6 hours as needed for shortness of breath or wheezing Follow up with primary care doctor <AYDEN England Last Filed: 10/07/25 20:57> Patient Language: Chinese <AYDEN England Last Filed: 10/07/25 20:57> Prescriptions: New albuterol sulfate [Ventolin HFA] 90 mcg/actuation HFA aerosol inhaler 2 puff inhalation QID PRN (Reason: shortness of breath or wheezing) Qty: 8.5 0RF No Action fluoxetine 10 mg tablet 10 mg PO DAILY Qty: 30 2RF norgestimate-ethinyl estradiol [Tri-Sprintec (28)] 0.18/0.215/0.25 mg-0.035mg (28) tablet 1 tablet PO DAILY Qty: 84 1RF dextroamphetamine-amphetamine [Adderall] 10 mg tablet 10 mg PO DAILY Qty: 30 0RF <AYDEN England Last Filed: 10/07/25 20:57> Follow-up/Referrals: Reese Recio MD [Primary Care Provider, Family Practice] <AYDEN England Last Filed: 10/07/25 20:57>
[2025-10-06 00:34] VITALS: BP 112/81; PULSE 91; RESP 20; TEMP 36.7; O2SAT 100
[2025-10-06 00:45] LABS: Hematocrit 36.1 % (37.0-47.0); Hemoglobin 12.7 g/dL (12.0-15.0); Immature Granulocyte Percent A 0.1 % (0-0.5); Lymphocytes Absolute Auto 2.87 K/mm3 (0.9-3.2); Mean Corpuscular HGB Conc 35.2 g/dl (32-36); Mean Corpuscular Hemoglobin 32.2 pg (26-34); Mean Corpuscular Volume 91.4 fl (80-100); Nucleated Red Blood Cells Absolute Auto 0.000 K/mm3 (0.0-0.012); Nucleated Red Blood Cells Perc 0.0 % (0.0-0.2); Platelet Count Result 181 k/mm3 (150-375); Red Blood Count 3.95 M/mm3 (4.2-5.4); White Blood Count 8.8 K/mm3 (4.5-10.0)
[2025-10-06 00:52] VITALS: PULSE 78; RESP 16
[2025-10-06] MEDS: IPRATROPIUM 0.5 MG/ALBUTEROL SULFATE 2.5 MG (BASE) AMPUL.NEB 3 ML INHALATION (00:52)
[2025-10-06 00:53] LABS: Alanine Aminotransferase 33 U/L (6-35); Albumin Level 4.0 g/dL (3.5-5.1); Alkaline Phosphatase 42 U/L (38-126); Anion Gap 5 mmol/L (4-12); Aspartate Amino Transferase 30 U/L (14-36); Bilirubin,Total 0.5 mg/dL (0.2-1.3); Blood Urea Nitrogen 14 mg/dL (7-17); Calcium 8.8 mg/dL (8.4-10.2); Carbon Dioxide 26 mmol/L (22-30); Chloride 106 mmol/L (98-107); Estimated Glomerular Filt Rate > 60; Glucose 107 mg/dL (65-110); Potassium 3.9 mmol/L (3.4-5.0); Sodium 137 mmol/L (137-145); Total Protein 7.3 g/dL (6.3-8.2)
[2025-10-06 00:56] VITALS: O2SAT 99
[2025-10-06 00:58] VITALS: PULSE 86; RESP 16
[2025-10-06 00:58] LABS: INR 0.9; Prothrombin Time 12.5 Seconds (11.1-14.7)
[2025-10-06 00:59] LABS: Partial Thromboplastin Time 29.2 Seconds (22.3-36.8)
[2025-10-06 01:05] LABS: NT Pro B Type Natriuretic Pept 63 pg/mL (19.9-100); Troponin I < 0.012 ng/mL (0.000-0.034)
[2025-10-06 01:23] LABS: Influenza A QL RT-PCR Negative (Negative); Influenza B QL RT-PCR Negative (Negative); RSV RNA, RT-PCR Negative (Negative); SARS-CoV-2 RNA PCR Positive (Negative)
[2025-10-06] MEDS: KETOROLAC 15 MG/ML VIAL (*BKC) IV PUSH (01:54)
[2025-10-06] MEDS: BENZONATATE 100 MG CAPSULE 200 MG PO (01:55)
[2025-10-06 01:59] LABS: BEDSIDEPREGUCG Negative (Negative)
[2025-10-06 02:18] VITALS: BP 117/73; PULSE 88; RESP 23; O2SAT 97
== END 2025-10-06 04:48 | disposition home or self-care (01) ==
PROVIDERS: Emergency Provider Physician Assistant; PCP Family Medicine
DX: U07.1 COVID-19 (principal); D64.9 Anemia, unspecified; F41.1 Generalized anxiety disorder; Z79.3 Long term (current) use of hormonal contraceptives; Z79.899 Other long term (current) drug therapy
CPT/HCPCS: 36415; 71046; 71275; 80053; 81025; 83880; 84484; 85025; 85380; 85610; 85730; 87637; 93005; 94640; 96374; 99284; A9270; J1885; Q9967